=== PATIENT | male | born 1985 | race American Indian/Alaskan Native ===

== ENCOUNTER 2017-04-07 08:58 | Emergency (ER) | payer SELFPAY ==
[2017-04-07 09:17] VITALS: BP 108/72
[2017-04-07 09:52] LABS: Anion Gap 21 mmol/L; BUN/Creatinine Ratio 12.85; Blood Urea Nitrogen 9 mg/dL (9-20); Calcium 8.8 mg/dL (8.4-10.2); Carbon Dioxide 23 mmol/L (22-30); Chloride 98.6 mmol/L (98-107); Glucose 97 mg/dL (75-100); Potassium 3.8 mmol/L (3.6-5.0); Sodium 139 mmol/L (137-145)
[2017-04-07 10:00] LABS: Hematocrit 46.7 % (35.5-45.6); Hemoglobin 15.3 gm/dl (11.8-15.2); Mean Corpuscular HGB Conc 33 % (32-34); Mean Corpuscular Hemoglobin 28 pg (28-32); Mean Corpuscular Volume 85 fl (84-94); Platelet Count 232 K/mm3 (140-440); Red Blood Count 5.52 M/mm3 (3.65-5.03); Red Cell Distribution Width 14.5 % (13.2-15.2); White Blood Count 9.9 K/mm3 (4.5-11.0)
[2017-04-07 10:09] LABS: Bilirubin,Urine NEG (Negative); Blood,Urine SM (Negative); Ketones,Urine 80 mg/dL (Negative); Leukocyte Esterase,Urine NEG (Negative); Mucus,Urine 2+ /HPF; Nitrite,Urine NEG (Negative); Urobilinogen,Urine < 2.0 mg/dL (<2.0)
[2017-04-07] MEDS ORDERED: NACL 0.9% 1000 ML 1,000 ML IV ONE (12:03)
[2017-04-07] MEDS ORDERED: ZOFRAN IV ONE (12:03)
--- NOTE | 2017-04-07 12:13 | Emergency Department Report ---
ED N/V/D HPI - General Chief complaint: Nausea/Vomiting/Diarrhea Stated complaint: N&V Time Seen by Provider: 04/07/17 11:43 Source: patient Mode of arrival: Ambulatory Limitations: No Limitations - History of Present Illness Initial comments: This is a 31-year-old male nontoxic, well nourished in appearance, no acute signs of distress presents to the ED complaining of the presents with nausea and vomiting 2 days. He stated last night around 6 PM he was working and had a burger then developed symptoms 2 hours later. Patient states vomiting is consistent with food. Patient did state that he is able to keep fluids down. Patient denies any chest pain and short of breath. Denies any abdominal pain, diarrhea, constipation, fever, chills, pelvic pain, hemoptysis, stiff neck, headache, numbness, tingling. Patient denies any allergies. Medical history includes asthma and headache. MD complaint: nausea, vomiting -: Gradual, days(s) (2) Description of Vomiting: food contents Description of Diarrhea: water Associated Abdominal Pain: No Radiation: none Pain Scale: 0 Improves with: none Worsens with: none Context: possible food poisoning Associated Symptoms: denies other symptoms. denies: myalgias, chest pain, cough , diaphoresis, fever/chills, headaches, loss of appetite, malaise, nausea/ vomiting, rash, dysuria, shortness of breath, syncope, weakness - Related Data Previous Rx's Medication Instructions Recorded Last Taken Type Ondansetron [Zofran Odt] 4 mg PO Q8HR #20 tab.rapdis 04/07/17 Unknown Rx Allergies Allergy/AdvReac Type Severity Reaction Status Date / Time No Known Allergies Allergy Unverified 04/07/17 09:14 ED Review of Systems ROS: Stated complaint: N&V Other details as noted in HPI Constitutional: denies: chills, fever Eyes: denies: eye pain, eye discharge, vision change ENT: denies: ear pain, throat pain Respiratory: denies: cough, shortness of breath, wheezing Cardiovascular: denies: chest pain, palpitations Endocrine: no symptoms reported Gastrointestinal: nausea, vomiting. denies: abdominal pain, diarrhea, constipation Genitourinary: denies: urgency, dysuria Musculoskeletal: denies: back pain, joint swelling, arthralgia Skin: denies: rash, lesions Neurological: denies: headache, weakness, paresthesias Psychiatric: denies: anxiety, depression Hematological/Lymphatic: denies: easy bleeding, easy bruising ED Past Medical Hx - Past Medical History Previous Medical History?: No - Surgical History Past Surgical History?: No - Social History Smoking Status: Current Every Day Smoker Substance Use Type: Alcohol, Non Opiate Pain - Medications Home Medications: Home Medications Medication Instructions Recorded Confirmed Last Taken Type Ondansetron [Zofran Odt] 4 mg PO Q8HR #20 tab.rapdis 04/07/17 Unknown Rx ED Physical Exam - General Limitations: No Limitations General appearance: alert, in no apparent distress - Head Head exam: Present: atraumatic, normocephalic, normal inspection - Eye Eye exam: Present: normal appearance, PERRL, EOMI. Absent: scleral icterus, conjunctival injection, nystagmus, periorbital swelling, periorbital tenderness Pupils: Present: normal accommodation - ENT ENT exam: Present: normal exam, normal orophraynx, mucous membranes moist, TM's normal bilaterally, normal external ear exam - Neck Neck exam: Present: normal inspection, full ROM. Absent: tenderness, meningismus, lymphadenopathy, thyromegaly - Respiratory Respiratory exam: Present: normal lung sounds bilaterally. Absent: respiratory distress, wheezes, rales, rhonchi, stridor, chest wall tenderness, accessory muscle use, decreased breath sounds, prolonged expiratory - Cardiovascular Cardiovascular Exam: Present: regular rate, normal rhythm, normal heart sounds. Absent: bradycardia, tachycardia, irregular rhythm, systolic murmur, diastolic murmur, rubs, gallop - GI/Abdominal GI/Abdominal exam: Present: soft, normal bowel sounds. Absent: distended, tenderness, guarding, rebound, rigid, diminished bowel sounds, hyperactive bowel sounds, hypoactive bowel sounds, organomegaly, mass, bruit, pulsatile mass , hernia - Expanded GI/Abdominal Exam Expanded GI/Abdominal exam: Absent: psoas sign, obturator sign, heel tap sign, Issa's sign, Rovsing's sign, tenderness at Mcburney's Point, ascites - Rectal Rectal exam: Present: deferred - Extremities Exam Extremities exam: Present: normal inspection, full ROM, normal capillary refill. Absent: tenderness, pedal edema, joint swelling, calf tenderness - Back Exam Back exam: Present: normal inspection, full ROM. Absent: tenderness, CVA tenderness (R), CVA tenderness (L), muscle spasm, paraspinal tenderness, vertebral tenderness, rash noted - Neurological Exam Neurological exam: Present: alert, oriented X3, CN II-XII intact, normal gait, reflexes normal - Psychiatric Psychiatric exam: Present: normal affect, normal mood - Skin Skin exam: Present: warm, dry, intact, normal color. Absent: rash ED Course Vital Signs 04/07/17 09:14 Temperature 98.2 F Pulse Rate 79 Respiratory 18 Rate Blood Pressure 108/72 O2 Sat by Pulse 99 Oximetry - Reevaluation(s) Reevaluation #1: 04/07/17 12:14 Patient is speaking in full sentences with no signs of distress noted. ED Medical Decision Making - Lab Data Result diagrams: 04/07/17 09:20 04/07/17 09:20 - Medical Decision Making Ed course: This is a 31-year-old male that presents with n/v Patient was examined by myself. Patient is stable. Patient received 1000 bag of normal saline as well as Zofran 4 mg IV. Patient stated nausea has subsided post medical treatment in the ED. By mouth challenge has been obtained with no signs of any nausea or vomiting. Patient was discharged with Zofran 4 mg ODT. She was instructed to follow-up with a primary care doctor 3-5 days or if symptoms worsen or continue return to emergency room as soon as possible. I felt the patient to keep well-hydrated with fluids to avoid dehydration. At time time of discharge, the patient does not seem toxic or ill in appearance. No acute signs of distress noted. Patient agrees to discharge treatment plan of care. No further questions noted by the patient. Critical care attestation.: If time is entered above; I have spent that time in minutes in the direct care of this critically ill patient, excluding procedure time. ED Disposition Clinical Impression: Nausea & vomiting Qualifiers: Vomiting type: unspecified Vomiting Intractability: non-intractable Qualified Code(s): R11.2 - Nausea with vomiting, unspecified Disposition: DC-01 TO HOME OR SELFCARE Is pt being admited?: No Does the pt Need Aspirin: No Condition: Stable Instructions: Acute Nausea and Vomiting (ED), Electrolyte Supplement (By mouth) , Ondansetron (By mouth) Additional Instructions: Follow-up with your primary care doctor in 3-5 days or if symptoms worsen or continue presents to emergency room as soon as possible. Increase fluid intake such as Gatorade or any other electrolyte to avoid dehydration. Prescriptions: Ondansetron [Zofran Odt] 4 mg PO Q8HR #20 tab.rapdis Referrals: PRIMARY CAREMD [Primary Care Provider] - 3-5 Days EDWIN HOLLAND MD [Staff Physician] - 3-5 Days [facility] [Outside] - 3-[address] [facility] [Outside] - 3-5 Days Forms: Work/School Release Form(ED)
[2017-04-07 13:00] LABS: Amylase 62 units/L (27-131); Lipase 15 units/L (13-60)
== END 2017-04-07 14:22 | disposition home or self-care (01) ==
LOC: ED 08:58
DX: R11.2 Nausea with vomiting, unspecified (principal); F17.210 Nicotine dependence, cigarettes, uncomplicated
CPT/HCPCS: 36415; 80048; 81001; 82150; 83690; 85025; 96361; 96374; 99283; J2405; J7030